=== PATIENT | male | born 2000 | race Caucasian/White ===

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

== ENCOUNTER 2020-09-30 13:16 | Emergency (ER) | payer MEDICAID, SELFPAY ==
[~2020-09-30] VITALS: Ht 170.2 cm; Wt 112.5 kg
[2020-09-30 13:26] VITALS: BP 141/77
== END 2020-09-30 14:07 | disposition home or self-care (01) ==
LOC: ED 13:16
DX: U07.1 COVID-19 (principal); L50.0 Allergic urticaria
CPT/HCPCS: U0003

== ENCOUNTER 2020-10-14 13:53 | Emergency (ER) | payer MEDICAID, SELFPAY ==
[~2020-10-14] VITALS: Ht 167.6 cm; Wt 108.9 kg
[2020-10-14 13:54] VITALS: Ht 167.6 cm; Wt 108.9 kg
[2020-10-14 14:28] VITALS: BP 145/85
== END 2020-10-14 14:28 | disposition home or self-care (01) ==
LOC: ED 13:53
DX: U07.1 COVID-19 (principal)
CPT/HCPCS: U0003

== ENCOUNTER 2020-11-14 21:14 | Emergency (ER) | payer MEDICAID ==
[~2020-11-14] VITALS: Ht 170.2 cm; Wt 116.6 kg
[2020-11-14 21:26] VITALS: Ht 170.2 cm; Wt 116.6 kg
[2020-11-14 22:04] LABS: BASOPHIL % 0.3 % (0.2-1.5); PLATELET COUNT 191 x10^3mcL (152-348)
[2020-11-14 22:13] LABS: CALCIUM 8.8 mg/dL (8.5-10.1); CARBON DIOXIDE 32.1 mmol/L (21-32); CHLORIDE SERUM 102 mmol/L (98-107); CREATININE SERUM 1.1 mg/dL (0.7-1.3); GFR1 > 60 mL/min; GLUCOSE SERUM 84 mg/dL (74-106); POTASSIUM SERUM 3.4 mmol/L (3.5-5.1); SODIUM SERUM 142 mmol/L (136-145)
[2020-11-14 22:18] LABS: ALBUMIN 4.1 g/dL (3.4-5.0); ALKALINE PHOSPHATASE 82 U/L (46-116); ALT/SGPT 38 U/L (16-63); AST/SGOT 20 U/L (15-37); BILIRUBIN TOTAL 0.6 mg/dL (0.20-1.00); LIPASE 71 IU/L (73-393); TOTAL PROTEIN, SERUM 7.5 g/dL (6.4-8.2)
[2020-11-15 00:03] VITALS: BP 131/59
== END 2020-11-15 00:03 | disposition home or self-care (01) ==
LOC: ED 21:14
PROVIDERS: Emergency Medicine
DX: K59.00 Constipation, unspecified (principal)
CPT/HCPCS: J7030; Q9967